=== PATIENT | female | born 1955 | race Caucasian/White ===

== ENCOUNTER 2022-04-10 09:48 | Day surgery (SDC) | payer MEDICARE, OTHER ==
[~2022-04-10 09:48] MED LIST: Lactated Ringers 1,000 ML IV SCH; Propofol 200 MG/20 ML SDV ONE; cefOXitin 2 GM in Premix Bag 1 BAG IV ONE; fentaNYL 100 MCG/2 ML SDV ONE
[2022-04-10] MEDS ORDERED: cefOXitin 100 ML ONE (11:38)
[2022-04-10] MEDS ORDERED: ePHEDrine 50 MG/ML SDV ONE (11:41)
[2022-04-10] MEDS ORDERED: Phenylephrine HCl In 0.9% NaCl 1 MG/10 ML Vial ONE (12:09)
[2022-04-10] MEDS ORDERED: Lactated Ringers 1,000 ML IV SCH (12:15)
[2022-04-10 13:11] VITALS: BP 118/68; PULSE 60
== END 2022-04-10 12:50 | disposition home or self-care (01) ==
LOC: MW.SDS 09:48
PROVIDERS: ATTEND Surgery
DX: Z12.11 Encounter for screening for malignant neoplasm of colon (principal); D12.5 Benign neoplasm of sigmoid colon; K57.30 Diverticulosis of large intestine without perforation or abscess without bleeding; J30.9 Allergic rhinitis, unspecified; K21.9 Gastro-esophageal reflux disease without esophagitis; M19.90 Unspecified osteoarthritis, unspecified site; G47.33 Obstructive sleep apnea (adult) (pediatric); I25.10 Atherosclerotic heart disease of native coronary artery without angina pectoris; I10 Essential (primary) hypertension; E78.00 Pure hypercholesterolemia, unspecified; E66.9 Obesity, unspecified; Z88.1 Allergy status to other antibiotic agents; Z79.899 Other long term (current) drug therapy; Z79.82 Long term (current) use of aspirin; Z98.890 Other specified postprocedural states; Z79.01 Long term (current) use of anticoagulants; Z90.710 Acquired absence of both cervix and uterus; Z96.653 Presence of artificial knee joint, bilateral; Z96.611 Presence of right artificial shoulder joint
CPT/HCPCS: 45380; J0694; J2704; J3010; J7120